=== PATIENT | female | born 1965 | race African-American/Black ===

== ENCOUNTER 2017-09-10 07:35 | Emergency (ER) | payer SELFPAY ==
[2017-09-10] MEDS ORDERED: Ibuprofen 200 MG TAB ONE (08:20)
--- NOTE | 2017-09-10 18:32 | RAD ---
LEFT KNEE FOUR VIEWS: 09/10/17 No fracture, dislocation, or joint space narrowing was seen. There was a large joint effusion, howeve r. The bony structures themselves appear normal. IMPRESSION: Joint effusion. POS: HOME
== END 2017-09-10 08:26 | disposition home or self-care (01) ==
LOC: BURERS 07:35
DX: S83.92XA Sprain of unspecified site of left knee, initial encounter (principal); Z87.891 Personal history of nicotine dependence; W22.8XXA Striking against or struck by other objects, initial encounter

== ENCOUNTER 2019-04-28 12:32 | Emergency (ER) | payer SELFPAY ==
[2019-04-28] MEDS ORDERED: Acetaminophen 500 MG TAB ONE (12:52)
--- NOTE | 2019-04-28 17:46 | RAD ---
RIGHT FIFTH FINGER: 04/28/19 Some soft tissue swelling is seen around the proximal portion of the finger. Nevertheless, no fractur e was appreciated. The joints currently appear normal. IMPRESSION: Soft tissue swelling. POS: HOME
== END 2019-04-28 13:18 | disposition home or self-care (01) ==
LOC: BURERS 12:32
DX: S63.616A Unspecified sprain of right little finger, initial encounter (principal); Z87.891 Personal history of nicotine dependence; W18.30XA Fall on same level, unspecified, initial encounter

== ENCOUNTER 2020-02-01 09:51 | Emergency (ER) | payer MEDICAID, SELFPAY ==
[2020-02-01 10:25] LABS: #Basophils 0.1 thou/uL (0.0-0.2); #Lymphocytes 2.3 thou/uL (1.20-3.40); #Monocytes 0.6 thou/uL (0.11-0.59); #Neutrophils 3.7 thou/uL (1.40-6.50); %Basophils 1.2 % (0.0-1.0); %Eosinophils 0.6 % (0.0-10.0); %Lymphocytes 33.9 % (21.0-51.0); %Monocytes 8.2 % (0.0-10.0); Hemoglobin 13.1 g/dL (12.0-16.0); Mean Corpuscular Hemoglobin 29.6 pg (27.0-31.0); Mean Corpuscular Volume 92.3 fL (78.0-98.0); Mean Platelet Volume 6.1 fL (7.4-10.4); Platelet Count 297 thou/uL (130-400); Red Blood Cell (RBC) Count 4.44 mill/uL (4.20-5.40); White Blood Cell (WBC) Count 6.7 thou/uL (4.8-10.8)
[2020-02-01 10:42] LABS: ALT (SGPT) 20 U/L (8-55); AST (SGOT) 18 U/L (5-34); Albumin 3.9 g/dL (3.5-5.0); Alkaline Phosphatase 64 U/L (40-110); Anion Gap 14 mmol/L (10-20); BUN (Urea Nitrogen) 11 mg/dL (9.8-20.1); Bilirubin, Total 0.4 mg/dL (0.2-1.2); Calc. Creatinine Clearance 0 mL/min (70-130); Calcium 8.6 mg/dL (7.8-10.44); Carbon Dioxide 23 mmol/L (22-29); Chloride 104 mmol/L (98-107); Globulin 3.5 g/dL (2.4-3.5); Glucose 89 mg/dL (70-105); Lipase 22 U/L (8-78); Potassium 3.8 mmol/L (3.5-5.1); Protein, Total 7.4 g/dL (6.0-8.3); Sodium 137 mmol/L (136-145)
[2020-02-01] MEDS ORDERED: Sodium Chloride 0.9% 0 ML ONE (10:42)
[2020-02-01] MEDS ORDERED: Aspirin Chewable 81 MG TAB ONE (10:42)
[2020-02-01] MEDS ORDERED: Nitroglycerin 2% Ointment 1 INCH/1 GM Packet ONE (12:13)
[2020-02-01] MEDS ORDERED: Iopamidol 370 76% 100 ML VIAL ONE (15:07)
--- NOTE | 2020-02-01 16:50 | RAD ---
PORTABLE CHEST: Date: 02-01-2020 FINDINGS: An AP portable film at 1027 shows a normal sized heart and clear lungs. No infiltrate or effusion was seen. There is no edema or congestion. The mediastinum appears normal. IMPRESSION: No acute thoracic finding. POS: HOME
--- NOTE | 2020-02-01 17:34 | CT ---
CT ANGIO OF THE CHEST WITH CONTRAST: Date: 02-01-[address] of the chest was done after a bolus of IV contrast for evaluation of this patient with shor tness of breath and an elevated D-Dimer. FINDINGS: Unfortunately, the opacification of the pulmonary arteries is quite poor due to phase of contrast. In terestingly, there is dense contrast in the superior vena cava and right ventricle, as well as in the aorta, but not in the pulmonary arteries themselves. The best one can say is that there are no large emboli in the main portions of the right and left pulmonary arteries, but very little can be said be yond that. The aorta shows no aneurysm or dissection. The heart shows no pericardial effusion. Both coronary arteries appear to fill. The lungs are current ly clear with no focal infiltrate or effusion. There is a small 6-7 mm nodular density at the periphe ry of the right middle lobe abutting the pleura. Statistically, this is very likely to be benign. One might wish to consider a one year follow up CT, but my suspicion of significance is low. The mediast inum showed no mass or adenopathy. There are no pleural effusions. Scans only went a short ways into the upper abdomen, but the visualized areas were unremarkable. IMPRESSION: Very low sensitivity study, nearly indeterminate. No gross emboli in the main pulmonary arteries. Ramana gs clear. No acute findings. Initial findings called to [facility] in ER at 1335 on 02-01-2020. POS: HOME
== END 2020-02-01 14:10 | disposition short-term general hospital (02) ==
LOC: BURERS 09:51
DX: R07.9 Chest pain, unspecified (principal); R06.00 Dyspnea, unspecified; Z87.891 Personal history of nicotine dependence
CPT/HCPCS: 71045; 71275; 80053; 83690; 83880; 84484; 85025; 85379; 93005; J3490; Q9967